=== PATIENT | female | born 1995 | race Caucasian/White ===

== ENCOUNTER 2017-06-13 22:22 | Emergency (ER) | payer MEDICAID ==
[~2017-06-13] VITALS: Ht 153.7 cm; Wt 76.7 kg
[2017-06-13 22:34] VITALS: BP_SYST 126
[2017-06-13 23:50] VITALS: BP_SYST 118
== END 2017-06-13 23:50 | disposition home or self-care (01) ==
LOC: SED 22:22
DX: S93.401A Sprain of unspecified ligament of right ankle, initial encounter (principal); W22.8XXA Striking against or struck by other objects, initial encounter; Y93.01 Activity, walking, marching and hiking; Y92.89 Other specified places as the place of occurrence of the external cause; Y99.8 Other external cause status
CPT/HCPCS: 99284